=== PATIENT | male | born 1980 | race Two or more races ===

== ENCOUNTER 2024-08-31 11:58 | Emergency (ER) | payer OTHER ==
[~2024-08-31] VITALS: Ht 172.7 cm; Wt 95.5 kg
[2024-08-31 12:31] VITALS: BP 119/92; PULSE 93; RESP 16; TEMP 97.8; O2SAT 98
[2024-08-31] MEDS ORDERED: CEPH-558 PO (13:04)
[2024-08-31] MEDS ORDERED: BACI28.410 TP (13:04)
[2024-08-31] MEDS ORDERED: SULF-261 PO (13:04)
[2024-08-31] MEDS: BACITRACIN 0.9 GM PACKET OINTMENT TP ONE (13:10)
[2024-08-31] MEDS: SULFAMETHOX/TRIMETH DS 800-160 MG/TABLET PO ONE (13:10)
[2024-08-31] MEDS: CEPHALEXIN MONOHYDRATE 500 MG CAPSULE PO ONE (13:10)
[2024-08-31] MEDS: PERTUSS(ACELL),DIPH,TET/PF 0.5 ML SYRINGE [ADULT] IM. ONE (13:11)
== END 2024-08-31 13:24 | disposition home or self-care (01) ==
LOC: EMS 12:07
DX: S61.215A Laceration without foreign body of left ring finger without damage to nail, initial encounter (principal); W26.8XXA Contact with other sharp object(s), not elsewhere classified, initial encounter; Y93.89 Activity, other specified; Y92.89 Other specified places as the place of occurrence of the external cause; Y99.8 Other external cause status
CPT/HCPCS: 90471; 90715; 99284